=== PATIENT | male | born 1955 | race Caucasian/White ===

== ENCOUNTER 2021-11-08 09:18 | Outpatient (CLI) | payer MEDICARE | END 2021-11-08 23:59 | disposition home or self-care (01) | LOC: RAD 09:18 | PROVIDERS: ATTEND Nurse Practitioner | DX: K40.90 Unilateral inguinal hernia, without obstruction or gangrene, not specified as recurrent (principal) | CPT/HCPCS: 76857 ==

== ENCOUNTER 2022-01-03 05:24 | Day surgery (SDC) | payer MEDICARE ==
[2021-12-27 15:09] LABS: BASOPHILS # (AUTO) 0.1 X10'3 (0-0.2); BASOPHILS % (AUTO) 1.9 % (0-1); EOSINOPHILS # (AUTO) 0.1 X10'3 (0-0.9); EOSINOPHILS % (AUTO) 2.4 % (0-6); LYMPHOCYTES # (AUTO) 1.7 X10'3 (1.1-4.8); LYMPHOCYTES % (AUTO) 31.4 % (21-51); MEAN CORPUSCULAR HGB CONC 33.7 g/dL (33.0-36.5); MEAN PLATELET VOLUME 8.7 FL (7.4-10.4); MONOCYTES # (AUTO) 0.5 X10'3 (0-0.9); MONOCYTES % (AUTO) 8.9 % (2-12); NEUTROPHILS # (AUTO) 2.9 X10'3 (1.8-7.7); NEUTROPHILS % (AUTO) 55.4 % (42-75); PRE OP HEMATOCRIT 39.1 % (42.0-52.0); PRE OP HEMOGLOBIN 13.2 g/dL (14.0-17.9); PRE OP PLATELET COUNT 177 X10'3 (140-440); RED BLOOD COUNT 4.12 X10'6 (4.70-6.10)
[2021-12-27 15:27] LABS: ALBUMIN 3.5 G/DL (3.4-5.0); ALBUMIN/GLOBULIN RATIO 1.1 (1.1-1.5); ALKALINE PHOSPHATASE 66 IU/L (46-116); BLOOD UREA NITROGEN 16 MG/DL (7-18); CALCIUM 8.8 MG/DL (8.5-10.1); CHLORIDE 105 MMOL/L (99-107); CREATININE 0.89 MG/DL (0.60-1.10); PRE OP ALT 18 U/L (30-65); PRE OP ANION GAP 8 (8-16); PRE OP AST 21 U/L (10-37); PRE OP BILIRUB, TOTAL 0.4 MG/DL (0.0-1.0); PRE OP GLUCOSE 96 MG/DL (70-104); PRE OP POTASSIUM 4.1 MMOL/L (3.4-5.1); PRE OP SODIUM 139 MMOL/L (135-145); TOTAL CARBON DIOXIDE 26.3 MMOL/L (24-32); TOTAL PROTEIN 6.8 G/DL (6.4-8.2); eGFR 86 ML/MIN
[2022-01-03] VITALS (16 sets, daily range): BP systolic 96–124; BP diastolic 60–89
[~2022-01-03] VITALS: Ht 180.3 cm; Wt 54.0 kg
[~2022-01-03 05:24] MED LIST: NO HOME MEDS; ringers solution, lacted 1,000 ML IV SCH
[2022-01-03] MEDS ORDERED: ceFAZolin inj. 2,000 MG in dextrose 5%-water 100 ML IV ONE (05:30)
[2022-01-03] MEDS ORDERED: famotidine 20mg tablet PO ONE (05:30)
[2022-01-03] MEDS ORDERED: LIDOcaine 1% 30ml preserv. free vial ONE (06:40)
[2022-01-03] MEDS ORDERED: BUPIVAcaine 0.5% inj/PF 30 ML ONE (06:41)
[2022-01-03] MEDS ORDERED: BUPIVAcaine 0.5% inj/PF 30 ml vial IJ ONE (07:12)
[2022-01-03] MEDS ORDERED: rocuronium 10mg/ml inj IV ONE (07:21)
[2022-01-03] MEDS ORDERED: LIDOcaine 2% (20mg/ml) 5ml vial ONE (07:21)
[2022-01-03] MEDS ORDERED: midazolam 1 mg/ML 2ml injection ONE (07:21)
[2022-01-03] MEDS ORDERED: fentaNYL/PF 50MCG/1 ML 2ML syringe ONE (07:21)
[2022-01-03] MEDS ORDERED: propofol inj 20 ML IV ONE (07:21)
[2022-01-03] MEDS ORDERED: dexamethasone sod phosphate 4mg/ml inj. ONE ×2 (07:23→08:17)
[2022-01-03] MEDS ORDERED: sevoflurane 250ml liquid IH ONE (07:39)
[2022-01-03] MEDS ORDERED: neostigmine methylsulfate 1 MG/ML 10ml vial ONE ×2 (08:17→09:03)
[2022-01-03] MEDS ORDERED: ondansetron/PF 4mg/2ml inj ONE (08:17)
[2022-01-03] MEDS ORDERED: ePHEDrine 50MG/ML INJ. ONE (08:17)
[2022-01-03] MEDS ORDERED: glycopyrrolate 0.2mg/ml inj ONE ×2 (08:17→09:03)
[2022-01-03] MEDS ORDERED: morphine 4 MG/ML inj SYRINge IV PRN (08:55)
[2022-01-03] MEDS ORDERED: morphine 2 MG/ML inj. syringe IV PRN (08:55)
[2022-01-03] MEDS ORDERED: ondansetron/PF 4mg/2ml inj IV PRN (08:55)
[2022-01-03] MEDS ORDERED: meperidine/PF 25mg/ml syringe IV PRN ×3 (08:55)
[2022-01-03] MEDS ORDERED: ringers solution, lacted 1,000 ML IV SCH (08:55)
[2022-01-03] MEDS ORDERED: proCHLORperazine 10 MG/2 ml inj IV PRN (08:55)
--- NOTE | 2022-01-03 09:18 | NUR ---
Received from OR via [facility] IN STABLE CONDITION , accompanied by Anesthesiologist and SMASHER HAND report given by SMASHER HAND AND Anesthesiolgist. Addendum: 01/03/22 at 0928 by Rimma Huber RN Amended: Links added.
[2022-01-03] MEDS ORDERED: HYDROcodone/acetaminophen 5mg/325mg tablet PO PRN (09:25)
[2022-01-03] MEDS ORDERED: HYDROcodone/acetaminophen 10/325mg tab PO PRN (09:25)
--- NOTE | 2022-01-03 13:43 | NUR ---
PATIENT BLADDER SCAN FOR 400CC AND STILL UNABLE TO VOID. VERBAL ORDER TO PLACE F/C PER DR OLIVAS AND HAVE PATIENT D/C F/C ON FRIDAY AT HOME WITH INSTRUCTIONS. PATIENT AGREES TO THIS
[2022-01-03] MEDS ORDERED: LIDOcaine 2% 10ml TOPICAL JELLY (Urojet) MM ONE (13:45)
--- NOTE | 2022-01-03 14:20 | NUR ---
PATIENT V/S WNL, SCD OFF, PIV D/C FROM LUE, CSM INTACT, LAP SITE TO ABDOMEN CDI NO S/S OF COMPLICATIONS. PATIENT STATES PAIN CONTROLLED WELL. PATIENT UNABLE TO VOID WITH >300CC IN BLADDER SCANNER. ORDER RECEIVED TO PLACE F/C AND SEND PATIENT HOME WITH IT, TO BE D/C ON FRIDAY AT HOME. THIS WAS DONE WITHOUT COMPLICATIONS AND 500CC URINE DRAINED OUT. i HAVE REVIEWED D/C INSTRUCTIONS WITH PATIENT AND F/C CARE AND MAINTENANCE WITH PATIENT WELL HOW TO D/C F/C AT HOME. PATIENT HAS VERBALIZED UNDERSTANDING OF THESE INSTRUCTIONS. EDUCATIONAL PAMPHLET GIVEN TO PATIENT ON F/C HOME CARE AND MAINTENANCE WELL. pATIENT WAS INSTRUCTED TO D/C F/C ON FRIDAY. PATIENT D/C HOME WITH ALL BELONGINGS AND FAMILY GAVE TRANSPORT HOME.
== END 2022-01-03 14:20 | disposition home or self-care (01) ==
LOC: PAS 05:24
PROVIDERS: ATTEND Surgery
DX: K40.20 Bilateral inguinal hernia, without obstruction or gangrene, not specified as recurrent (principal); K42.9 Umbilical hernia without obstruction or gangrene; F17.210 Nicotine dependence, cigarettes, uncomplicated; Z98.42 Cataract extraction status, left eye; Z88.8 Allergy status to other drugs, medicaments and biological substances; Z72.89 Other problems related to lifestyle; Z79.899 Other long term (current) drug therapy; Z20.822 Contact with and (suspected) exposure to COVID-19
CPT/HCPCS: 36415; 49585; 49650; 80053; 82948; 85025; 93005; C1781; J0690; J1100; J2250; J2405; J2704; J2710; J3010; J3490; J7030; J7060; J7120; S0020; U0003; U0005; Z7506; Z7508; Z7512; A4215; A4618